=== PATIENT | male | born 1950 | race Caucasian/White ===

== ENCOUNTER → 2016-10-12 | Outpatient (CLI) | payer OTHER ==
[~2016-10-12] MED LIST: ASPI81TA28 PO; ATV1 PO; CRS10 PO; DOCU-94 PO; EZET10TA63 PO; FENO1TAB24 PO; FRS/40 PO; GLC500 PO; GLCSR25 PO; INSDGI SC; INSU100I2 SQ; INSUINJ4 SQ; LPR25 PO; LSX20 PO; LSX40 PO; METF-384 PO; MULT-513 PO; ONDA4TAB46 PO; OXYC1TAB3 PO; POTA20TA13 PO; SPRIN/30 INH; SYMIN160 INH; VNTHFA/IN INH
--- NOTE | 2016-10-12 10:04 | DIAGNOSTIC IMAGING REPORT ---
CHEST 2 VIEWS ROUTINE CLINICAL HISTORY: Pleural effusions. COMPARISON STUDY: 09/27/2016 FINDINGS: The heart is mildly enlarged. There are small bilateral pleural effusions. There is a right basilar chest tube. There is no lobar consolidation. There is mild persistent pulmonary vascular congestion. There is a small radiopaque device projects over the left central chest.[ IMPRESSION: 1. No change the position of the right-sided pleural drain 2. No evidence of pneumothorax 3. Small bilateral pleural effusions similar to the prior study 4. Mild pulmonary vascular congestion Electronically signed by: Jason Trotter M.D. 10/12/2016 10:02 AM
== END | disposition home or self-care (01) ==
LOC: C.RAD 09:09
PROVIDERS: ATTEND Surgery
DX: J90 Pleural effusion, not elsewhere classified (principal)

== ENCOUNTER 2016-10-22 10:33 | Emergency (ER) | payer OTHER ==
[~2016-10-22] VITALS: Ht 175.3 cm; Wt 94.0 kg
[~2016-10-22 10:33] MED LIST changes: -DOCU-94 PO; -FRS/40 PO; -INSDGI SC; -LSX40 PO; -METF-384 PO; -ONDA4TAB46 PO; -OXYC1TAB3 PO
[2016-10-22 10:41] VITALS: TEMP 37.4; Ht 175.3 cm; Wt 94.0 kg
[2016-10-22] MEDS ORDERED: FUROSEMIDE 40 MG/4 ML VIAL IV STA (11:02)
--- NOTE | 2016-10-22 11:05 | EMERGENCY ROOM VISIT NOTE ---
History Report prepared by Leon: Carlos Robertson Under the Supervision of: Dr. Rupert Pacheco M.D. First contact with patient: 10:50 Chief Complaint: CHEST PAIN Stated Complaint: DRAIN TUBE REFUSES TO DRAIN CHEST PAIN History of Present Illness The patient is a 65 year old male who presents to the Emergency Room with complaints of intermittent chest pain since yesterday. The pain is worsened with deep breathing. The pain is rated 4/10 in severity. The patient also complains of a headache. He does not urinate very often despite being on Lasix. The patient was recently diagnosed with a pleural effusion. He has a chest tube in place to drain the fluid, inserted by Dr. Ag, Thoracic Surgeon. The patient was unable to have fluid drained today because he is in so much pain. As per his daughter, the patient typically has 550 CCs of fluid drained. He initially had 2000 CCs drained. The patient had an unspecified pain medication last night. He did not have anything for pain today. He has not been eating much lately. Source of History: patient Onset: yesterday Position: chest Symptom Intensity: 4/10 Timing: intermittent Modifying Factors (Worsening): breathing Associated Symptoms: + headache, + urinary symptoms (infrequent) Review of Systems All systems have been listed, reviewed, and are negative other than those previously mentioned. Please see Additional Medical History Sheet. Past Medical & Surgical Medical Problems: (1) Acute on chronic diastolic CHF (congestive heart failure) (2) Arteriosclerosis (3) Carpal tunnel syndrome (4) CHF exacerbation (5) Diabetes (6) Electrocardiogram showing T wave abnormalities (7) Kidney stone Surgical Problems: (1) History of cholecystectomy (2) History of heart artery stent Family History Cancer SISTER (ovarian) Diabetes mellitus MOTHER SISTER BROTHER FH: hyperlipidemia MOTHER BROTHER FHx: gallbladder disease Heart disease MOTHER ([place] - age 62) Hypertension MOTHER Kidney stones Seizures Social History Smoking Status: Never Smoker Alcohol Use: none Drug Use: none Marital Status: Housing Status: lives with significant other Occupation Status: retired Current/Historical Medications Scheduled Aspirin (Aspirin Ec), 81 MG PO DAILY Budesonide/Formoterol Fumarate (Symbicort 160/4.5 Inhaler), 2 PUFF INH BID Docusate Sodium (Colace), 100 MG PO BID Ezetimibe (Zetia), 10 MG PO DAILY Fenofibrate (Fenofibrate), 145 MG PO DAILY Furosemide (Furosemide), 80 MG PO QAM Furosemide (Lasix), 40 MG PO QPM Glipizide (Glipizide ER), 2.5 MG PO BID Insulin Glargine (Lantus Solostar Pen), 20 UNIT SQ BID Insulin Lispro (Human) (Humalog Kwikpen), 8-12 UNITS SQ ACHS Metformin Hcl (Glucophage), 1,000 MG PO BID Metoprolol Tartrate (Lopressor), 12.5 MG PO BID Multivitamins/Minerals (Mvi With Minerals), 1 TAB PO DAILY Potassium Chloride Microencaps (Potassium Chloride Er), 20 MEQ PO DAILY Rosuvastatin Calcium (Crestor), 5 MG PO DAILY Tiotropium [place] (Spiriva Handihaler), 1 PUFFS INH DAILY Scheduled PRN Albuterol Hfa (Ventolin Hfa), 2 PUFFS INH Q4 PRN for Shortness of Breath Lorazepam (Lorazepam), 1 MG PO HS PRN for Anxiety Ondansetron Hcl (Zofran), 4 MG PO Q4 PRN for Nausea Oxycodone Immediate Rel Tab (Roxicodone Ir), 1-2 TAB PO Q4H PRN for Severe Pain Allergies Coded Allergies: No Known Allergies (Unverified , 10/22/16) Physical Exam Vital Signs Date Time Temp Pulse Resp B/P Pulse Ox O2 Delivery O2 Flow Rate FiO2 10/22/16 14:00 82 26 119/77 96 Room Air 10/22/16 13:17 83 26 124/84 94 Room Air 2.0 10/22/16 13:12 80 10/22/16 12:39 87 26 119/60 94 Nasal Cannula 2.0 10/22/16 12:07 86 21 117/73 94 Nasal Cannula 2.0 10/22/16 11:28 93 Nasal Cannula 2.0 10/22/16 11:21 90 Room Air 10/22/16 11:08 90 Room Air 10/22/16 10:51 84 10/22/16 10:41 37.4 124 22 121/71 95 Room Air Physical Exam GENERAL: Patient awake, alert, oriented x 3. Patient follows commands. Patient does not appear toxic. Patient is adequately hydrated and well- nourished. SKIN: No erythema, pallor, cyanosis or rash HEENT: Normal head, pupils equal, reactive to light and accommodation. CHEST: Tube right side of chest at mid axillary line. LUNGS: No wheezes, no rales, no rhonchi. Decreased breath sounds bilaterally. HEART: No murmurs. No gallops. No rubs ABDOMEN: No masses, no rebound, no hepatomegaly or splenomegaly. EXTREMITIES: No signs of trauma. There is 3+ pitting pretibial and pedal edema bilaterally. No calf or thigh tenderness. NEUROLOGIC: Cranial nerves II-XII within normal limits. No gross motor sensory function deficits. Medical Decision & Procedures ER Provider Diagnostic Interpretation: X ray results are stated below per my interpretation and the radiologist's interpretation. CHEST ONE VIEW PORTABLE CLINICAL HISTORY: Congestive failure RIGHT-SIDED CHEST TUBE WITH NO DRAINAGE. COMPARISON STUDY: 10/12/2016 FINDINGS: The heart is enlarged. There is a right basilar pleural drainage catheter. There is a small bilateral pleural effusion. There are right lower lobe airspace opacities. There is mild central pulmonary vascular congestion.[ IMPRESSION: 1. Cardiomegaly and mild pulmonary vascular congestion 2. Small bilateral pleural effusions 3. Developing right basilar airspace opacities 4. There is an indwelling right-sided pleural drainage catheter. Electronically signed by: Jason Trotter M.D. 10/22/2016 11:33 AM Dictated Date/Time: 10/22/2016 11:31 AM Laboratory Results 10/22/16 11:15 Red Blood Count 5.15, Mean Corpuscular Volume 89.1, Mean Corpuscular Hemoglobin 30.9, Mean Corpuscular Hemoglobin Concent 34.6, Mean Platelet Volume 11.0, Neutrophils (%) (Auto) 90.7, Lymphocytes (%) (Auto) 4.2, Monocytes (%) (Auto) 4.5, Eosinophils (%) (Auto) 0.2, Basophils (%) (Auto) 0.2, Neutrophils # (Auto) 12.43, Lymphocytes # (Auto) 0.58, Monocytes # (Auto) 0.62, Eosinophils # (Auto) 0.03, Basophils # (Auto) 0.03 10/22/16 11:15 Test 10/22/16 11:15 10/22/16 14:50 White Blood Count 13.72 K/uL (4.8-10.8) Red Blood Count 5.15 M/uL (4.7-6.1) Hemoglobin 15.9 g/dL (14.0-18.0) Hematocrit 45.9 % (42-52) Mean Corpuscular Volume 89.1 fL (80-100) Mean Corpuscular Hemoglobin 30.9 pg (25-34) Mean Corpuscular Hemoglobin Concent 34.6 g/dl (32-36) Platelet Count 210 K/uL (130-400) Mean Platelet Volume 11.0 fL (7.4-10.4) Neutrophils (%) (Auto) 90.7 % Lymphocytes (%) (Auto) 4.2 % Monocytes (%) (Auto) 4.5 % Eosinophils (%) (Auto) 0.2 % Basophils (%) (Auto) 0.2 % Neutrophils # (Auto) 12.43 K/uL (1.4-6.5) Lymphocytes # (Auto) 0.58 K/uL (1.2-3.4) Monocytes # (Auto) 0.62 K/uL (0.11-0.59) Eosinophils # (Auto) 0.03 K/uL (0-0.5) Basophils # (Auto) 0.03 K/uL (0-0.2) RDW Standard Deviation 49.4 fL (36.4-46.3) RDW Coefficient of Variation 15.2 % (11.5-14.5) Immature Granulocyte % (Auto) 0.2 % Immature Granulocyte # (Auto) 0.03 K/uL (0.00-0.02) Prothrombin Time 16.1 SECONDS (9.0-12.0) Prothromb Time International Ratio 1.5 (0.9-1.1) Activated Partial Thromboplast Time 31.5 SECONDS (21.0-31.0) Partial Thromboplastin Ratio 1.2 Anion Gap 11.0 mmol/L (3-11) Est Creatinine Clear Calc Drug Dose 59.6 ml/min Estimated GFR () 60.7 Estimated GFR (Non- 52.4 BUN/Creatinine Ratio 12.5 (10-20) Calcium Level 9.1 mg/dl (8.5-10.1) Total Bilirubin 3.7 mg/dl (0.2-1) Aspartate Amino Transf (AST/SGOT) 20 U/L (15-37) Alanine Aminotransferase (ALT/SGPT) 16 U/L (12-78) Alkaline Phosphatase 99 U/L (45-117) Troponin I 0.089 ng/ml (0-0.045) Total Protein 7.1 gm/dl (6.4-8.2) Albumin 3.0 gm/dl (3.4-5.0) Globulin 4.1 gm/dl (2.5-4.0) Albumin/Globulin Ratio 0.7 (0.9-2) Urine Color ORANGE Urine Appearance CLEAR (CLEAR) Urine pH 5.0 (4.5-7.5) Urine Specific [place] 1.015 (1.000-1.030) Urine Protein 1+ (NEG) Urine Glucose (UA) 1+ (NEG) Urine Ketones NEG (NEG) Urine Occult Blood NEG (NEG) Urine Nitrite POS (NEG) Urine Bilirubin 1+ (NEG) Urine Urobilinogen NEG (NEG) Urine Leukocyte Esterase TRACE (NEG) Urine WBC (Auto) 1-5 /hpf (0-5) Urine RBC (Auto) 0-4 /hpf (0-4) Urine Hyaline Casts (Auto) 1-5 /lpf (0-5) Urine Epithelial Cells (Auto) 0-5 /lpf (0-5) Urine Bacteria (Auto) NEG (NEG) Laboratory results as stated above per my review. Medications Administered Medications (Trade) Dose Ordered Sig/Sue Route Start Time Stop Time Status Last Admin Dose Admin Furosemide (Lasix Inj) 40 mg NOW STAT IV 10/22/16 11:02 10/22/16 11:04 DC 10/22/16 11:02 40 MG Morphine Sulfate (MoRPHine SULFATE INJ) 6 mg Q1H PRN IV 10/22/16 11:15 11/05/16 11:14 10/22/16 11:22 6 MG Ondansetron HCl (Zofran Inj) 4 mg Q1HWA PRN IV 10/22/16 11:15 11/21/16 11:14 10/22/16 11:29 4 MG ECG Indication: chest pain Rate (beats per minute): 92 Rhythm: sinus rhythm Findings: 1st degree AV block, ST depression (I, AvL, V4-V6.), left axis deviation ED Course 1054: Past medical records reviewed. The patient was evaluated in room C7. A complete history and physical examination was performed. 1102: Lasix 40 mg IV. 1115: Zofran 4 mg IV, Morphine Sulfate 6 mg IV. 1443: The patient is doing a little better. He still has some pain in his back. He still hasn't given a urine sample. Medical Decision I considered multiple diagnoses including myocardial infarction, chest wall pain , pericarditis, myocarditis, aortic emergencies, pulmonary embolism, congestive heart failure, GI causes, and kidney stone. The patient has multiple comorbid problems including congestive failure, pleural effusions, renal insufficiency. He has a chest strain in his right chest and had one in his left in the past. He is on high-dose Lasix. Patient also complains of significant swelling of both ankles. Multiple labs, EKG and imaging were obtained today. Please see above. The patient's troponin is higher than it has been in the past but I believe that much of that is secondary to his renal insufficiency. His white count is also bumped. The patient's chest x-ray is similar to what it has been in the past. I do not think he has pneumonia or an acute coronary cause for his pain. He was given pain medication and additional Lasix. He does not have significant blood or white cells in his urine. The patient has a follow-up appointment with his chest surgeon soon. The patient will be given pain medication and Zofran to be taken at home. He is to continue all his current medications as prescribed. The patient needs to continue having his chest drained daily. Impression Primary Impression: Bilateral pleural effusion Additional Impression: CHF (congestive heart failure) Scribe Attestation The scribe's documentation has been prepared under my direction and personally reviewed by me in its entirety. I confirm that the note above accurately reflects all work, treatment, procedures, and medical decision making performed by me. Departure Information Dispostion Home / Self-Care Prescriptions Docusate Sodium (COLACE) 100 Mg Cap 100 MG PO BID, #30 CAP Prov: Rupert Pacheco M.D. 10/22/16 Ondansetron Hcl (ZOFRAN) 4 Mg Tab 4 MG PO Q4 Y for Nausea, #10 TAB Prov: Rupert Pacheco M.D. 10/22/16 Oxycodone Immediate Rel Tab (ROXICODONE IR) 5 Mg Tab 1-2 TAB PO Q4H Y for Severe Pain, #20 TAB Prov: Rupert Pacheco M.D. 10/22/16 Referrals Mamadou Weathers (PCP) Kenton Ag MD Forms HOME CARE DOCUMENTATION FORM, IMPORTANT VISIT INFORMATION Patient Instructions My [facility] [employer] Additional Instructions 1-2 OxyIR every 4 hours as needed for moderate to severe pain. Do not drive or operate machinery while taking pain medication. Take 1 Colace twice a day. 1 Zofran every 4 hours as needed for nausea. Continue all of your current medications as prescribed. Follow-up with Dr. Ag as scheduled. Continue to drain chest every day. Problem Qualifiers Additional Impression: CHF (congestive heart failure) Congestive heart failure chronicity: chronic
[2016-10-22] MEDS ORDERED: ONDANSETRON INJ 2 MG/ML 2 ML VIAL IV PRN (11:15)
[2016-10-22] MEDS ORDERED: MoRPHine SULFATE 10 MG/ML CARP/VIAL IV PRN (11:15)
[2016-10-22 11:28] VITALS: O2SAT 93
[2016-10-22 11:31] LABS: BASO % 0.2 %; BASO ABS # 0.03 K/uL (0-0.2); COMPLETE YES; EOS % 0.2 %; HEMATOCRIT 45.9 % (42-52); IG% 0.2 %; LYMPH % 4.2 %; LYMPH ABS # 0.58 K/uL (1.2-3.4); MEAN CELL VOLUME 89.1 fL (80-100); MEAN CORPUSCULAR HEMOGLOBIN 30.9 pg (25-34); MEAN CORPUSCULAR HGB CONC 34.6 g/dl (32-36); MONO % 4.5 %; NEUT % 90.7 %; PLATELET COUNT 210 K/uL (130-400); RED BLOOD COUNT 5.15 M/uL (4.7-6.1); WHITE BLOOD COUNT 13.72 K/uL (4.8-10.8)
--- NOTE | 2016-10-22 11:35 | DIAGNOSTIC IMAGING REPORT ---
CHEST ONE VIEW PORTABLE CLINICAL HISTORY: Congestive failure RIGHT-SIDED CHEST TUBE WITH NO DRAINAGE. COMPARISON STUDY: 10/12/2016 FINDINGS: The heart is enlarged. There is a right basilar pleural drainage catheter. There is a small bilateral pleural effusion. There are right lower lobe airspace opacities. There is mild central pulmonary vascular congestion.[ IMPRESSION: 1. Cardiomegaly and mild pulmonary vascular congestion 2. Small bilateral pleural effusions 3. Developing right basilar airspace opacities 4. There is an indwelling right-sided pleural drainage catheter. Electronically signed by: Jason Trotter M.D. 10/22/2016 11:33 AM Dictated Date/Time: 10/22/2016 11:31 AM
[2016-10-22 11:52] LABS: BUN/CREATININE RATIO 12.5 (10-20); CALCIUM 9.1 mg/dl (8.5-10.1); CREATININE 1.4 mg/dl (0.60-1.40); POTASSIUM 3.7 mmol/L (3.5-5.1)
[2016-10-22 12:01] LABS: INR 1.5 (0.9-1.1); PARTIAL THROMBOPLASTIN RATIO 1.2; PROTHROMBIN TIME (PATIENT) 16.1 SECONDS (9.0-12.0)
[2016-10-22] MEDS ORDERED: FRS/40 PO (12:02)
[2016-10-22] MEDS ORDERED: LSX40 PO (12:02)
[2016-10-22] MEDS ORDERED: METF-384 PO (12:02)
[2016-10-22 12:09] LABS: ALB/GLOB RATIO 0.7 (0.9-2)
[2016-10-22 15:27] LABS: URINE APPEARANCE CLEAR (CLEAR); URINE COLOR ORANGE; URINE EPITHELIAL CELL AUTO 0-5 /lpf (0-5); URINE NITRITE POS (NEG); URINE SPECIFIC GRAVITY 1.015 (1.000-1.030); UROBILINOGEN NEG (NEG); ZZUR CULT IF INDIC CLEAN CATCH NO
[2016-10-22 15:29] LABS: MANUAL MICROSCOPIC REQUIRED? NO; REVIEW REQ? NO; URINE BILIRUBIN 1+ (NEG)
[2016-10-22] MEDS ORDERED: OXYC1TAB3 PO (15:44)
[2016-10-22] MEDS ORDERED: ONDA4TAB46 PO (15:44)
[2016-10-22] MEDS ORDERED: DOCU-94 PO (15:44)
[2016-10-22 16:18] VITALS: BP 121/74; PULSE 78; O2SAT 95
== END 2016-10-22 16:20 | disposition home or self-care (01) ==
LOC: C.EDB 10:34 → C.EDC 16:20
DX: J90 Pleural effusion, not elsewhere classified (principal); I50.32 Chronic diastolic (congestive) heart failure; I51.7 Cardiomegaly; I44.0 Atrioventricular block, first degree; N28.9 Disorder of kidney and ureter, unspecified; E11.9 Type 2 diabetes mellitus without complications; Z79.84 Long term (current) use of oral hypoglycemic drugs; Z79.4 Long term (current) use of insulin; Z83.3 Family history of diabetes mellitus; Z82.49 Family history of ischemic heart disease and other diseases of the circulatory system

== ENCOUNTER 2016-10-25 12:20 | Emergency (ER) | payer OTHER ==
[~2016-10-25] VITALS: Ht 172.7 cm; Wt 99.7 kg
[~2016-10-25 12:20] MED LIST changes: +DOCU-94 PO; +FRS/40 PO; -GLC500 PO; -LSX20 PO; +LSX40 PO; +METF-384 PO; +ONDA4TAB46 PO; +OXYC1TAB3 PO
[2016-10-25 12:23] VITALS: O2SAT 94; Ht 172.7 cm; Wt 99.7 kg
[2016-10-25] MEDS ORDERED: INSDGI SC (12:47)
[2016-10-25] MEDS ORDERED: SODIUM CHLORIDE 0.9% 1000ML 1,000 ML IV STA (13:35)
[2016-10-25 13:41] LABS: BASO % 0.3 %; BASO ABS # 0.03 K/uL (0-0.2); COMPLETE YES; EOS % 0.6 %; HEMATOCRIT 44.7 % (42-52); IG% 0.4 %; LYMPH % 6.8 %; LYMPH ABS # 0.67 K/uL (1.2-3.4); MEAN CELL VOLUME 87.6 fL (80-100); MEAN CORPUSCULAR HEMOGLOBIN 31.6 pg (25-34); MONO % 10.3 %; NEUT % 81.6 %; PLATELET COUNT 257 K/uL (130-400); WHITE BLOOD COUNT 9.84 K/uL (4.8-10.8)
[2016-10-25 13:52] LABS: INR 1.8 (0.9-1.1); PARTIAL THROMBOPLASTIN RATIO 1.4; PROTHROMBIN TIME (PATIENT) 20.1 SECONDS (9.0-12.0)
[2016-10-25 13:59] LABS: BUN/CREATININE RATIO 19.2 (10-20); CREATININE 1.6 mg/dl (0.60-1.40); MAGNESIUM 1.7 mg/dl (1.8-2.4); POTASSIUM 4.1 mmol/L (3.5-5.1)
--- NOTE | 2016-10-25 14:02 | DIAGNOSTIC IMAGING REPORT ---
CHEST ONE VIEW PORTABLE CLINICAL HISTORY: Altered mental status COMPARISON STUDY: 10/22/2016 FINDINGS: The heart remains enlarged. A right-sided pleural drainage catheter is again visualized. There is a persistent right pleural effusion with associated right basilar airspace opacities. There is mild central pulmonary vascular congestion. A small left pleural effusion is also suspected. There are left basilar atelectatic changes. An electronic device projects over the central chest possibly representing an event recorder.[ IMPRESSION: Persistent cardiomegaly, pulmonary vascular congestion, and bilateral pleural effusions right greater than left. Persistent bibasal airspace opacities right greater than left. Persistent right pleural drain. Electronically signed by: Jason Trotter M.D. 10/25/2016 2:01 PM Dictated Date/Time: 10/25/2016 1:59 PM
[2016-10-25 14:07] LABS: CKMB/CK RATIO 1.8 (0-3.0); THYROID STIMULATING HORMONE 1.34 uIu/ml (0.300-4.500)
[2016-10-25 14:55] LABS: URINE APPEARANCE CLEAR (CLEAR); URINE BILIRUBIN NEG (NEG); URINE COLOR DK YELLOW; URINE NITRITE NEG (NEG); URINE SPECIFIC GRAVITY 1.005 (1.000-1.030); UROBILINOGEN POS (NEG); ZZUR CULT IF INDIC CLEAN CATCH NO
[2016-10-25 15:19] LABS: MANUAL MICROSCOPIC REQUIRED? YES; REVIEW REQ? NO
[2016-10-25 15:28] LABS: URINE BACTERIA NEG (NEG); URINE RBC 0-4 /hpf (0-4); URINE WBC 0 /hpf (0-5)
--- NOTE | 2016-10-25 16:27 | EMERGENCY ROOM VISIT NOTE ---
History Report prepared by Leon: Jacquie Darden Under the Supervision of: Dr. Lefty Thornton D.O. First contact with patient: 13:27 Chief Complaint: CHEST PAIN Stated Complaint: SHORTNESS OF BREATH Nursing Triage Summary: pt. has had a 5 pound weight gain in the past day, has right sided chest tube in place since , homehealth was at his home this am to drain and no fluid would drain, pt. states he has right sided chest pain History of Present Illness The patient is a 65 year old male who presents to the Emergency Room with complaints of persistent shortness of breath that has been ongoing for several days. He currently rates his discomfort as a 4/10 in severity. Per the patient 's , the patient was diagnosed with a right pleural effusion. She notes that the patient had a catheter placed and home health nurses come every day to drain the fluid from his lungs. The patient's states that home health nurses got a little bit of fluid out yesterday, but could not get any out today. She notes that the patient has had bilateral lower extremity swelling. The patient's notes that the patient was evaluated in the emergency department on Monday night and was diagnosed with congestive heart failure and noted that his organs were shutting down. She states that the patient has bilateral kidney stones and states that the patient has been experiencing hematuria. The patient states that his main concern today was shortness of breath and the central chest pain that radiates to his back. The patient's states that the patient has had previous pleural effusions that were drained by Dr. Ag in the past. The patient denies any fevers. Source of History: patient, spouse/significant other () Onset: several days Position: other (global) Symptom Intensity: 4/10 Quality: other (shortness of breath) Timing: other (persistent) Associated Symptoms: + back pain, + chest pain (central), + urinary symptoms (hematuria), No fevers Note: Associated Symptoms: bilateral lower extremity swelling. Review of Systems See HPI for pertinent positives & negatives. A total of 10 systems reviewed and were otherwise negative. Past Medical & Surgical Medical Problems: (1) Acute on chronic diastolic CHF (congestive heart failure) (2) Arteriosclerosis (3) Carpal tunnel syndrome (4) CHF exacerbation (5) Diabetes (6) Electrocardiogram showing T wave abnormalities (7) Kidney stone Surgical Problems: (1) History of cholecystectomy (2) History of heart artery stent Family History Cancer SISTER (ovarian) Diabetes mellitus MOTHER SISTER BROTHER FH: hyperlipidemia MOTHER BROTHER FHx: gallbladder disease Heart disease MOTHER (DC - age 62) Hypertension MOTHER Kidney stones Seizures Social History Smoking Status: Never Smoker Alcohol Use: none Drug Use: none Marital Status: Housing Status: lives with significant other Occupation Status: retired Current/Historical Medications Scheduled Aspirin (Aspirin Ec), 81 MG PO DAILY Budesonide/Formoterol Fumarate (Symbicort 160/4.5 Inhaler), 2 PUFF INH BID Docusate Sodium (Colace), 100 MG PO BID Ezetimibe (Zetia), 10 MG PO DAILY Fenofibrate (Fenofibrate), 145 MG PO DAILY Furosemide (Furosemide), 80 MG PO QAM Furosemide (Lasix), 40 MG PO QPM Glipizide (Glipizide ER), 2.5 MG PO BID Insulin Glargine (Lantus), 20 UNITS SC BID Insulin Lispro (Human) (Humalog Kwikpen), 8-12 UNITS SQ ACHS Metformin Hcl (Glucophage), 1,000 MG PO BID Metoprolol Tartrate (Lopressor), 12.5 MG PO BID Multivitamins/Minerals (Mvi With Minerals), 1 TAB PO DAILY Potassium Chloride Microencaps (Potassium Chloride Er), 20 MEQ PO DAILY Rosuvastatin Calcium (Crestor), 5 MG PO DAILY Tiotropium [place] (Spiriva Handihaler), 1 PUFFS INH DAILY Scheduled PRN Albuterol Hfa (Ventolin Hfa), 2 PUFFS INH Q4 PRN for Shortness of Breath Lorazepam (Lorazepam), 1 MG PO HS PRN for Anxiety Ondansetron Hcl (Zofran), 4 MG PO Q4 PRN for Nausea Oxycodone Immediate Rel Tab (Roxicodone Ir), 1-2 TAB PO Q4H PRN for Severe Pain Allergies Coded Allergies: No Known Allergies (Unverified , 10/25/16) Physical Exam Vital Signs Date Time Temp Pulse Resp B/P Pulse Ox O2 Delivery O2 Flow Rate FiO2 10/25/16 20:38 36.8 78 24 106/61 94 Room Air 2.0 10/25/16 19:01 77 24 15/55 94 Room Air 4.0 10/25/16 18:06 75 10/25/16 17:16 76 25 126/70 86 Room Air 10/25/16 15:42 67 20 120/65 99 Nasal Cannula 4.0 10/25/16 14:49 73 19 126/71 97 Nasal Cannula 4.0 10/25/16 13:51 73 10/25/16 13:45 70 22 124/77 95 Nasal Cannula 4.0 10/25/16 12:23 94 4.0 10/25/16 12:23 90 2.0 10/25/16 12:23 36.2 82 22 129/69 90 Nasal Cannula 2.0 Physical Exam CONSTITUTIONAL/VITAL SIGNS: Reviewed / noted above. GENERAL: Non-toxic in appearance. INTEGUMENTARY: Warm, dry, and [place]. HEAD: Normocephalic. EYES: without scleral icterus or trauma. ENT/OROPHARYNX: clear and moist. LYMPHADENOPATHY/NECK: Is supple without lymphadenopathy or meningismus. RESPIRATORY: Diminished breath sounds on the right. CARDIOVASCULAR: Regular rate and rhythm. CHEST WALL: Pleural catheter in right chest wall. GI/ABDOMEN: Soft and nontender. No organomegaly or pulsatile mass. No rebound or guarding. Normal bowel sounds. EXTREMITIES: Bilateral pedal edema. Warm and well perfused. BACK: No CVA tenderness. NEUROLOGICAL: Intact without focal deficits. PSYCHIATRIC: normal affect. MUSCULOSKELETAL: Normally developed with good muscle tone. Medical Decision & Procedures ER Provider Diagnostic Interpretation: X ray results and stated below per my interpretation and radiology interpretation. CHEST ONE VIEW PORTABLE CLINICAL HISTORY: Altered mental status COMPARISON STUDY: 10/22/2016 FINDINGS: The heart remains enlarged. A right-sided pleural drainage catheter is again visualized. There is a persistent right pleural effusion with associated right basilar airspace opacities. There is mild central pulmonary vascular congestion. A small left pleural effusion is also suspected. There are left basilar atelectatic changes. An electronic device projects over the central chest possibly representing an event recorder.[ IMPRESSION: Persistent cardiomegaly, pulmonary vascular congestion, and bilateral pleural effusions right greater than left. Persistent bibasal airspace opacities right greater than left. Persistent right pleural drain. Electronically signed by: Jason Trotter M.D. 10/25/2016 2:01 PM Dictated Date/Time: 10/25/2016 1:59 PM Laboratory Results 10/25/16 11:50 Red Blood Count 5.10, Mean Corpuscular Volume 87.6, Mean Corpuscular Hemoglobin 31.6, Mean Corpuscular Hemoglobin Concent 36.0, Mean Platelet Volume 11.0, Neutrophils (%) (Auto) 81.6, Lymphocytes (%) (Auto) 6.8, Monocytes (%) (Auto) 10.3, Eosinophils (%) (Auto) 0.6, Basophils (%) (Auto) 0.3, Neutrophils # (Auto ) 8.03, Lymphocytes # (Auto) 0.67, Monocytes # (Auto) 1.01, Eosinophils # (Auto ) 0.06, Basophils # (Auto) 0.03 10/25/16 11:50 Test 10/25/16 11:50 10/25/16 13:30 10/25/16 17:17 10/25/16 18:37 White Blood Count 9.84 K/uL (4.8-10.8) Red Blood Count 5.10 M/uL (4.7-6.1) Hemoglobin 16.1 g/dL (14.0-18.0) Hematocrit 44.7 % (42-52) Mean Corpuscular Volume 87.6 fL (80-100) Mean Corpuscular Hemoglobin 31.6 pg (25-34) Mean Corpuscular Hemoglobin Concent 36.0 g/dl (32-36) Platelet Count 257 K/uL (130-400) Mean Platelet Volume 11.0 fL (7.4-10.4) Neutrophils (%) (Auto) 81.6 % Lymphocytes (%) (Auto) 6.8 % Monocytes (%) (Auto) 10.3 % Eosinophils (%) (Auto) 0.6 % Basophils (%) (Auto) 0.3 % Neutrophils # (Auto) 8.03 K/uL (1.4-6.5) Lymphocytes # (Auto) 0.67 K/uL (1.2-3.4) Monocytes # (Auto) 1.01 K/uL (0.11-0.59) Eosinophils # (Auto) 0.06 K/uL (0-0.5) Basophils # (Auto) 0.03 K/uL (0-0.2) RDW Standard Deviation 49.6 fL (36.4-46.3) RDW Coefficient of Variation 15.6 % (11.5-14.5) Immature Granulocyte % (Auto) 0.4 % Immature Granulocyte # (Auto) 0.04 K/uL (0.00-0.02) Prothrombin Time 20.1 SECONDS (9.0-12.0) Prothromb Time International Ratio 1.8 (0.9-1.1) Activated Partial Thromboplast Time 35.6 SECONDS (21.0-31.0) Partial Thromboplastin Ratio 1.4 Anion Gap 14.0 mmol/L (3-11) Est Creatinine Clear Calc Drug Dose 52.7 ml/min Estimated GFR () 51.6 Estimated GFR (Non- 44.5 BUN/Creatinine Ratio 19.2 (10-20) Osmolality 277 mOsm/kg (280-300) Calcium Level 9.0 mg/dl (8.5-10.1) Magnesium Level 1.7 mg/dl (1.8-2.4) Total Bilirubin 6.5 mg/dl (0.2-1) Direct Bilirubin 5.0 mg/dl (0-0.2) Aspartate Amino Transf (AST/SGOT) 527 U/L (15-37) Alanine Aminotransferase (ALT/SGPT) 151 U/L (12-78) Alkaline Phosphatase 131 U/L (45-117) Total Creatine Kinase 85 U/L (39-308) Creatine Kinase MB 1.5 ng/ml (0.5-3.6) Creatine Kinase MB Ratio 1.8 (0-3.0) Troponin I 0.052 ng/ml (0-0.045) Total Protein 6.8 gm/dl (6.4-8.2) Albumin 2.5 gm/dl (3.4-5.0) Lipase 109 U/L (73-393) Thyroid Stimulating Hormone (TSH) 1.340 uIu/ml (0.300-4.500) Urine Color DK YELLOW Urine Appearance CLEAR (CLEAR) Urine pH 5.0 (4.5-7.5) Urine Specific [place] 1.005 (1.000-1.030) Urine Protein NEG (NEG) Urine Glucose (UA) NEG (NEG) Urine Ketones NEG (NEG) Urine Occult Blood NEG (NEG) Urine Nitrite NEG (NEG) Urine Bilirubin NEG (NEG) Urine Urobilinogen POS (NEG) Urine Leukocyte Esterase NEG (NEG) Urine WBC (Auto) /hpf (0-5) Urine RBC (Auto) /hpf (0-4) Urine Hyaline Casts (Auto) /lpf (0-5) Urine Epithelial Cells (Auto) /lpf (0-5) Urine Bacteria (Auto) (NEG) Urine RBC 0-4 /hpf (0-4) Urine WBC 0 /hpf (0-5) Urine Epithelial Cells 5-10 /lpf (0-5) Urine Bacteria NEG (NEG) Urine Hyaline Casts 1-5 /lpf (0-5) Lactic Acid Level 2.6 mmol/L (0.4-2.0) Ammonia < 10.0 umol/L (11-32) Test 10/25/16 18:45 10/25/16 18:54 Arterial Blood pH 7.51 (7.35-7.45) Arterial Blood Partial Pressure CO2 30 mmHg (35-46) Arterial Blood Partial Pressure O2 98 mm/Hg (80-95) Arterial Blood HCO3 24 mmol/L (19-24) Arterial Blood Oxygen Saturation 98.1 % (90-95) Arterial Blood Base Excess 1.6 mEq/L (-9-1.8) Arterial Blood Gas Delivery 2 LITERS Jonas Test POS (POS) Hepatitis B Surface Antigen NEG (NEG) Hepatitis C Antibody NEG (NEG) Laboratory results as stated above per my review. ECG Indication: chest pain, SOB/dyspnea Rate (beats per minute): 73 Rhythm: sinus rhythm Findings: PAC (73), T-wave inversion (Lateral), no acute ischemic change Comparison ECG Date: 10/22/16 Change: no significant change (ST changes are similar) ED Course 1327: Previous medical records were reviewed. The patient was evaluated in room B8. A complete history and physical examination was performed. 1608: I reevaluated the patient and he is resting comfortably. I discussed the exam findings with him and I discussed the treatment plan. He verbalized compete understanding and agreement. He is going to be evaluated for further treatment. 1610: The patient's case was discussed with Dr. Whitney [facility]. He is going to evaluate the patient for further treatment. 1810: It was brought to my attention that Dr. Ag is not in town this week , so therefore the patient needs to be transferred to another facility for further evaluation and treatment. 1830: I discussed the patients case with Dr. Saab, Pulmonology [facility]. They are going to contact an internal medicine doctor to directly evaluate the patient for further treatment at their facility. 185: I discussed the patients case with Dr. Contreras, Internal Medicine - [facility]. He has accepted the patient as a transfer to their facility. Medical Decision the differential was considered includes acute myocardial infarction, acute coronary syndrome, myocarditis, pericarditis, pericardial effusions /tamponad, esophageal perforation, pulmonary embolism, pneumonia, pneumothorax, cardiomyopathy, congestive heart, anemia , COPD/asthma exacerbation. This is a 65-year-old male who presents to the ED with a chief complaint of increasing shortness of breath and increasing edema. The patient states the has his Pleur-evac drained about 500 mL daily. This morning the visiting nurse was unable to drain the catheter and there was increased pain in the chest with attempted draining. The patient came in for evaluation. Exam reveals decreased breath sounds on the right compared to left. Vital signs are stable. EKG shows sinus rhythm rate of 73. White blood cell count was normal. INR is 1.8. Bilirubin is elevated at 6.5. BUN and creatinine are slightly higher than 3 days ago. Troponin is 0.052. This is down slightly from 3 days ago. Chest x-ray reveals bilateral pleural effusions and pulmonary arrest or congestion. The patient was told the results of the test. I spoke with the hospitalist, who will see the patient for further inpatient evaluation. The hospitalist did not feel comfortable keeping the patient here as the patient assessment coordinator is currently not present to evaluate the Pleur-evac. The patient was accepted at [facility] and [place] for evaluation there. The patient was transported there by ambulance. Consults Time Called: 1544 Consulting Physician: JIMMY Escamilla Returned Call: 1610 The patient's case was discussed with JMIMY Escamilla. He is going to evaluate the patient for further treatment. Additional Consults: Time Called: 1816 Consulted Physician: Dr. Saab, Pulmonology Critical [facility] Returned Call: 1830 Additional Comments: I discussed the patients case with Dr. Saab, Pulmonology Critical [facility]. They are going to contact an internal medicine doctor to directly evaluate the patient for further treatment at their facility. Time Called: 1829 Consulted Physician: Dr. Contreras, Internal Medicine - [facility] Returned Call: 1855 Additional Comments: I discussed the patients case with Dr. Contreras, Internal Medicine - [facility]. He has accepted the patient as a transfer to their facility. Impression Primary Impression: CHF (congestive heart failure) Additional Impressions: Renal insufficiency Hyponatremia Elevated troponin Hyperbilirubinemia Scribe Attestation The scribe's documentation has been prepared under my direction and personally reviewed by me in its entirety. I confirm that the note above accurately reflects all work, treatment, procedures, and medical decision making performed by me. Departure Information Dispostion Transfer Acute Care Facility Referrals Mamadou Weathers (PCP) Problem Qualifiers
[2016-10-25] MEDS ORDERED: ALBUMIN 25% 50 ML with FUROSEMIDE INJ 40 MG IV ONE ×2 (17:30)
--- NOTE | 2016-10-25 17:40 | DIAGNOSTIC IMAGING REPORT ---
CHEST CT WITHOUT CONTRAST CT DOSE: 1082.41 mGy.cm HISTORY: pleural effusions, Pleurx catheter TECHNIQUE: Multiaxial CT images of the chest were performed without contrast. COMPARISON: Chest CTA 09/15/2016. FINDINGS: The central airways are patent. No pneumothorax. Suture material at the base of the left lower lobe suggestive of prior wedge resection. Patchy densities at the left lung base may represent atelectasis. This is not significantly changed. There is mild interlobular septal thickening. This favors mild pulmonary edema. Near complete consolidation of the right lower lobe. This is nonspecific but favors compressive atelectasis from the partially loculated [id number] pleural effusion. There is also a small component of the loculated right pleural fluid within the major fissure. There is a right sided pleural catheter which enters the posterior pleural space and extends along the anterior pleural base. Of note, the majority of the pleural fluid remains loculated within the upper to mid hemithorax posteriorly. Therefore, some of this fluid may not have contact with the pleural catheter. Normal caliber thoracic aorta. Prior cholecystectomy. Slightly nodular contour to the liver consistent with cirrhosis. The visualized spleen and adrenal glands are unremarkable. Mediastinal lymphadenopathy persists. Dominant anterior mediastinal lymph node measures 2.0 x 1.2 cm. This is similar to the prior study. Diffuse body wall edema. Hyperdense material within the left pleural space likely represents prior pleurodesis. IMPRESSION: 1. Small to moderate partially loculated right pleural effusion which has slightly increased in size. There is a right sided pleural catheter which enters the posterior pleural space and extends along the anterior pleural base. The majority of the partially loculated pleural fluid is located posteriorly at the upper to mid right hemithorax. Therefore, this may not have contact with the pleural catheter. 2. Persistent mediastinal lymphadenopathy. 3. Mild interlobular septal thickening suggestive of mild pulmonary edema. 4. Body wall edema. 5. Left-sided pleurodesis. Electronically signed by: Justin Lewis M.D. 10/25/2016 5:38 PM Dictated Date/Time: 10/25/2016 5:28 PM
--- NOTE | 2016-10-25 17:44 | History and Physical ---
History & Physical Date & Time of Service: Oct 25, 2016 at 17:02 Chief Complaint: Shortness Of Breath Primary Care Physician: Mamadou Weathers History of Present Illness Source: patient, family, spouse, clinic records, hospital records This patient is a pleasant 65-year-old male that presents emergency department by ambulance complaining of substernal chest pain and shortness of breath that got significantly worse earlier today when the patient's home healthcare nurse tried to drain his right sided Pleurx catheter. The Pleurx catheter was originally placed about 1 month ago. He follows with Dr. Ag for chronic bilateral transudative pleural effusions. The patient underwent left sided thoracoscopy with pleurodesis they think in August 2015. He has subsequently now developed a right-sided pleural effusion. They're trying conservative treatment with the Pleurx catheter, however it is documented in thoracic surgery 's notes that they will entertain the idea of a right-sided thoracoscopy and pleurodesis. After the Pleurx catheter was placed for couple weeks ago, he did have fairly good symptomatic relief. Today is the first day that he had severe chest pain when he attempted to drain it. They were not able to obtain any fluid. The patient has had a nonproductive cough. He denies any fever or chills. He denies any abdominal pain or nausea. No changes in bowel movements , however he does note some constipation having a bowel movement approximately every other day. They're reportedly light brown. He denies any urinary frequency. He does note hematuria 2 days ago. The patient was seen in the emergency department 3 days ago with chest pain or shortness of breath. A workup was performed, the patient was sent home. His symptoms have progressed. Past Medical/Surgical History Medical Problems: Asthma Chronic bilateral transudative pleural effusions status post left-sided thoracoscopy and pleurodesis. Status post right Pleurx catheter approximately 1 month ago Coronary artery disease status post GA in 1988 with stent placement CHF-diastolic dysfunction Insulin-dependent diabetes mellitus Obstructive sleep apnea-recently noncompliant with CPAP Surgical Problems: (1) History of cholecystectomy Status: Resolved ? history of Liver dz-biopsy done during cholecystectomy. thinks that it was consistent with hepatitis (2) History of heart artery stent Status: Chronic Family History Cancer SISTER (ovarian) Diabetes mellitus MOTHER SISTER BROTHER FH: hyperlipidemia MOTHER BROTHER FHx: gallbladder disease Heart disease MOTHER (GA - age 62) Hypertension MOTHER Kidney stones Seizures Social History Smoking Status: Never Smoker Alcohol Use: none Drug Use: none Marital Status: Housing status: lives with family Occupational Status: retired Immunizations History of Influenza Vaccine: Yes History of Tetanus Vaccine?: Yes History of Pneumococcal: Yes History of Hepatitis B Vaccine: No Multi-Drug Resistant Organisms History of MDRO: No Allergies Coded Allergies: No Known Allergies (Unverified , 10/25/16) Home Medications Scheduled Aspirin (Aspirin Ec), 81 MG PO DAILY Budesonide/Formoterol Fumarate (Symbicort 160/4.5 Inhaler), 2 PUFF INH BID Docusate Sodium (Colace), 100 MG PO BID Ezetimibe (Zetia), 10 MG PO DAILY Fenofibrate (Fenofibrate), 145 MG PO DAILY Furosemide (Furosemide), 80 MG PO QAM Furosemide (Lasix), 40 MG PO QPM Glipizide (Glipizide ER), 2.5 MG PO BID Insulin Glargine (Lantus), 20 UNITS SC BID Insulin Lispro (Human) (Humalog Kwikpen), 8-12 UNITS SQ ACHS Metformin Hcl (Glucophage), 1,000 MG PO BID Metoprolol Tartrate (Lopressor), 12.5 MG PO BID Multivitamins/Minerals (Mvi With Minerals), 1 TAB PO DAILY Potassium Chloride Microencaps (Potassium Chloride Er), 20 MEQ PO DAILY Rosuvastatin Calcium (Crestor), 5 MG PO DAILY Tiotropium [place] (Spiriva Handihaler), 1 PUFFS INH DAILY Scheduled PRN Albuterol Hfa (Ventolin Hfa), 2 PUFFS INH Q4 PRN for Shortness of Breath Lorazepam (Lorazepam), 1 MG PO HS PRN for Anxiety Ondansetron Hcl (Zofran), 4 MG PO Q4 PRN for Nausea Oxycodone Immediate Rel Tab (Roxicodone Ir), 1-2 TAB PO Q4H PRN for Severe Pain Review of Systems 10 system review performed and negative unless noted in HPI or below Physical Exam Vital Signs Date Time Temp Pulse Resp B/P Pulse Ox O2 Delivery O2 Flow Rate FiO2 10/25/16 15:42 67 20 120/65 99 Nasal Cannula 4.0 10/25/16 14:49 73 19 126/71 97 Nasal Cannula 4.0 10/25/16 13:51 73 10/25/16 13:45 70 22 124/77 95 Nasal Cannula 4.0 10/25/16 12:23 94 4.0 10/25/16 12:23 90 2.0 10/25/16 12:23 36.2 82 22 129/69 90 Nasal Cannula 2.0 GENERAL: 65-year-old male, jaundice and chronically ill in appearance. Mildly disoriented SKIN: The skin was juandice-no petechia noted HEAD: Normocephalic atraumatic. EYES: Pupils equal round and reactive to light and accommodation. Sclera icteric MOUTH: Mucous membranes fairly dry. No bleeding noted with the gums. NECK: No lymphadenopathy. No JVD. THORAX: No erythema noted around current right lateral proximal catheter site. There are [address] with mild underlying edema noted with point tenderness posterior to the current site HEART: Systolic murmur noted. Regular rate. LUNGS: Significantly diminished breath sounds particularly at the right base. No wheezing noted. Saturating at 99% on 4 L of oxygen per nasal cannula. ABDOMEN: Positive bowel sounds x 4.Soft, tenderness to palpation noted in the right upper quadrant with ascites also noted. No guarding or rebound tenderness. MUSCULOSKELETAL: +1 pitting edema without any erythema, warmth or tenderness appreciated in lower extremities bilaterally. NEURO: Patient was alert and oriented to person place and time. He is somewhat slightly slow to respond to questions. Mildly disoriented. No focal weakness noted. Diagnostics Laboratory Results Results Past 24 Hours Test 10/25/16 11:50 10/25/16 13:30 Range/Units White Blood Count 9.84 4.8-10.8 K/uL Red Blood Count 5.10 4.7-6.1 M/uL Hemoglobin 16.1 14.0-18.0 g/dL Hematocrit 44.7 42-52 % Mean Corpuscular Volume 87.6 80-100 fL Mean Corpuscular Hemoglobin 31.6 25-34 pg Mean Corpuscular Hemoglobin Concent 36.0 32-36 g/dl Platelet Count 257 130-400 K/uL Mean Platelet Volume 11.0 7.4-10.4 fL Neutrophils (%) (Auto) 81.6 % Lymphocytes (%) (Auto) 6.8 % Monocytes (%) (Auto) 10.3 % Eosinophils (%) (Auto) 0.6 % Basophils (%) (Auto) 0.3 % Neutrophils # (Auto) 8.03 1.4-6.5 K/uL Lymphocytes # (Auto) 0.67 1.2-3.4 K/uL Monocytes # (Auto) 1.01 0.11-0.59 K/uL Eosinophils # (Auto) 0.06 0-0.5 K/uL Basophils # (Auto) 0.03 0-0.2 K/uL RDW Standard Deviation 49.6 36.4-46.3 fL RDW Coefficient of Variation 15.6 11.5-14.5 % Immature Granulocyte % (Auto) 0.4 % Immature Granulocyte # (Auto) 0.04 0.00-0.02 K/uL Prothrombin Time 20.1 9.0-12.0 SECONDS Prothromb Time International Ratio 1.8 0.9-1.1 Activated Partial Thromboplast Time 35.6 21.0-31.0 SECONDS Partial Thromboplastin Ratio 1.4 Sodium Level 127 136-145 mmol/L Potassium Level 4.1 3.5-5.1 mmol/L Chloride Level 90 98-107 mmol/L Carbon Dioxide Level 23 21-32 mmol/L Anion Gap 14.0 3-11 mmol/L Blood Urea Nitrogen 31 7-18 mg/dl Creatinine 1.60 0.60-1.40 mg/dl Est Creatinine Clear Calc Drug Dose 52.7 ml/min Estimated GFR () 51.6 Estimated GFR (Non- 44.5 BUN/Creatinine Ratio 19.2 10-20 Random Glucose 168 70-99 mg/dl Calcium Level 9.0 8.5-10.1 mg/dl Magnesium Level 1.7 1.8-2.4 mg/dl Total Bilirubin 6.5 0.2-1 mg/dl Direct Bilirubin 5.0 0-0.2 mg/dl Aspartate Amino Transf (AST/SGOT) 527 15-37 U/L Alanine Aminotransferase (ALT/SGPT) 151 12-78 U/L Alkaline Phosphatase 131 45-117 U/L Total Creatine Kinase 85 39-308 U/L Creatine Kinase MB 1.5 0.5-3.6 ng/ml Creatine Kinase MB Ratio 1.8 0-3.0 Troponin I 0.052 0-0.045 ng/ml Total Protein 6.8 6.4-8.2 gm/dl Albumin 2.5 3.4-5.0 gm/dl Lipase 109 73-393 U/L Thyroid Stimulating Hormone (TSH) 1.340 0.300-4.500 uIu/ml Urine Color DK YELLOW Urine Appearance CLEAR CLEAR Urine pH 5.0 4.5-7.5 Urine Specific [place] 1.005 1.000-1.030 Urine Protein NEG NEG Urine Glucose (UA) NEG NEG Urine Ketones NEG NEG Urine Occult Blood NEG NEG Urine Nitrite NEG NEG Urine Bilirubin NEG NEG Urine Urobilinogen POS NEG Urine Leukocyte Esterase NEG NEG Urine WBC (Auto) 0-5 /hpf Urine RBC (Auto) 0-4 /hpf Urine Hyaline Casts (Auto) 0-5 /lpf Urine Epithelial Cells (Auto) 0-5 /lpf Urine Bacteria (Auto) NEG Urine RBC 0-4 0-4 /hpf Urine WBC 0 0-5 /hpf Urine Epithelial Cells 5-10 0-5 /lpf Urine Bacteria NEG NEG Urine Hyaline Casts 1-5 0-5 /lpf Microbiology Results 10/25/16 Blood Culture, Received Pending 10/25/16 Blood Culture, Received Pending 10/25/16 Urine Culture, Received Pending Diagnostic Radiology CHEST ONE VIEW PORTABLE CLINICAL HISTORY: Altered mental status COMPARISON STUDY: 10/22/2016 FINDINGS: The heart remains enlarged. A right-sided pleural drainage catheter is again visualized. There is a persistent right pleural effusion with associated right basilar airspace opacities. There is mild central pulmonary vascular congestion. A small left pleural effusion is also suspected. There are left basilar atelectatic changes. An electronic device projects over the central chest possibly representing an event recorder.[ IMPRESSION: Persistent cardiomegaly, pulmonary vascular congestion, and bilateral pleural effusions right greater than left. Persistent bibasal airspace opacities right greater than left. Persistent right pleural drain. Electronically signed by: Jason Trotter M.D. 10/25/2016 2:01 PM Dictated Date/Time: 10/25/2016 1:59 PM EKG Sinus rhythm with first-degree AV block and PACs noted Q waves noted in the inferior leads ST depressions noted in the lateral leads Impression Assessment and Plan 65-year-old male with multiple medical problems presents emergency department with worsening shortness of breath, dyspnea on exertion and the sudden onset of acute chest pain today with attempts to drain his right-sided Pleurx catheter. Acute on chronic respiratory failure with hypoxia-likely multifactorial. Likely an element of acute on chronic diastolic heart failure. Worsening transudative pleural effusions. Normally on 2 L O2 per NC at home -Obtain CT chest/abd/pelvis -Give dose of Albumin 25%/lasix 40 mg IV x 1 -Patient's thoracic surgeon, Dr. Ag is out of town. Dr. Alatorre pulmonary will be consulted for the Pleurx catheter -Check ABG -Strict I's and O's Metabolic encephalopathy-possibly related to pain meds. However, I am concerned about his worsening liver function coupled with hypoxia -Check lactic acid -Check ammonia level -ABG as noted above Coagulopathy likely secondary to hepatitis-INR increased from 1.5-1.8. Transaminases up. Questionable History of hepatitis -Vit K 10 mg IV now -Check hepatitis panel Hyponatremia-? Dehydration, poor po intake versus SIADH -Add urine and serum osmolality -Strict I's and O's diabetes mellitus -follow BSGs AC, HS and with meals -hold patient's home dose of metformin 1000 mg BID -insulin sliding scale -Continue home dose of Lantus 20 u BID (if ok for diet) History of asthma -Continue Spiriva daily -Continue Symbicort BID -Duo nebs every 6 hours will be available History of coronary artery disease with substernal chest pain. Mild elevation in trop trending down from 3 days ago-I do not believe this is cardiac in nature. This is likely more related to pleuritic pain -Trend cardiac enzymes -Telemetry monitoring -Continue metoprolol 12.5 mg BID AYLA -Encourage CPAP at night DVT prophylaxis -Hold off on chemical means as patient is coagulopathic -Teds, SCDs CODE STATUS -LEVEL I FULL CODE DISPO -pt is seriously ill, pending further work up, pt may need transfer to [facility] to pts other tree climber, Dr. Gianna Neal as the pt's local thoracic surgeon is out of town. Dr. Alatorre also out of town ADDENDUM Given that the pt has worsening coagulopathy and his thoracic surgeon is out of town, recommend TRANSFER TO [facility] UNDER THE CARE OF PT'S OTHER ARCHITECTURE MANAGER, DR. GIANNA NEAL. Level of Care Critical Care Resuscitation Status FULL RESUSCITATION VTE Prophylaxis Risk Level: Very Low Given or contraindicated: Christian Armentaings, SCD's, Contraindicated
--- NOTE | 2016-10-25 17:44 | DIAGNOSTIC IMAGING REPORT ---
CT SCAN OF THE ABDOMEN AND PELVIS WITHOUT IV CONTRAST CLINICAL HISTORY: Abnormal liver and renal function. COMPARISON STUDY: Abdominal CT dated 03/31/2016. TECHNIQUE: CT scan of the abdomen and pelvis is performed from the lung bases to the proximal femora. Images are reviewed in the axial, sagittal, and coronal planes. IV contrast was not administered for this examination as per the referring clinician. Note that the examination was performed and significant suboptimal fashion without oral and IV contrast. The examination is also degraded by streak artifact from the right arm which could not be elevated above the abdomen. Automated dose control exposure was utilized. FINDINGS: Lung bases: The heart is top normal in size and without pericardial effusion. The coronary arteries are densely calcified. There is a small to moderate right pleural effusion with right basilar consolidation. There is a trace left pleural effusion with left basilar consolidation. A pleural drain is noted at the right lung base. Suture material is noted at the left lung base, and hyperdense material at the left lung base suggests previous pleurodesis. Liver: The unenhanced liver is cirrhotic in morphology and heterogeneous in attenuation. There is nodularity of the hepatic surface contour. There is mild central intrahepatic biliary ductal dilatation. Gallbladder: Surgically absent noting clips in the gallbladder fossa. Spleen: The spleen is mildly enlarged, measuring 14.5 cm in length. Pancreas: There is moderate fatty atrophy of the pancreas. Adrenal glands: Unremarkable. Kidneys: The unenhanced kidneys demonstrate mild cortical atrophy and are without hydronephrosis. A 5 mm nonobstructing calculus is present in the right lower pole. There are 2 nonobstructing calculi in the left lower pole measuring up to 3 mm. A 1.5 cm hyperdense lesion in the left upper pole is unchanged and likely represents a complex/hemorrhagic cyst. Abdominal vasculature: The abdominal aorta is normal in course and caliber noting moderate to advanced atherosclerotic calcification. Bowel: The small bowel and colon are normal in course and caliber. There is mild to moderate colonic fecal retention. There are scattered colonic diverticula without CT evidence of acute diverticulitis. The appendix is well-visualized and normal. Peritoneum: There is no intraperitoneal free air or abdominal ascites. There is mild mesenteric edema. There is a small fat-containing umbilical hernia. Lymphadenopathy: None. Pelvic viscera: The bladder, prostate, and seminal vesicles are normal as visualized. Skeletal structures: The skeletal structures are osteopenic. There is mild lumbosacral spondylosis. No lytic or blastic lesions are seen. Soft tissues: There is body wall edema. IMPRESSION: 1. Significantly suboptimal examination without oral and IV contrast. The examination is also degraded by streak artifact. 2. There are no acute infectious or inflammatory findings in the abdomen or pelvis. 3. Small to moderate right pleural effusion with right basilar consolidation and a right pleural drain in place. 4. There is a trace left pleural effusion with minimal consolidative change and evidence of previous pleurodesis at the left lung base. 5. Cirrhotic liver morphology. 6. There is mesenteric edema and anasarca of the body wall suggesting fluid overload. 7. Mild splenomegaly suggests portal hypertension. 8. Bilateral nonobstructing renal calculi. 9. Additional findings as above. Electronically signed by: Frederick Calderon M.D. 10/25/2016 5:42 PM Dictated Date/Time: 10/25/2016 5:31 PM
--- NOTE | 2016-10-25 18:19 | Medical Consult ---
Consultation Note Consultation Note [facility] [address] [place] [address] Medical Consultation Patient Name: Miguel Sneed Unit Number: [id number] Date of : 1950 Patient Status: Registered Emergency Room Attending Doctor: Lefty Thornton D.O. History - H&P CONSULT Date & Time of Service: Oct 25, 2016 at 17:02 Chief Complaint: Shortness Of Breath Primary Care Physician: Mamadou Weathers History of Present Illness Source: patient, family, spouse, clinic records, hospital records This patient is a pleasant 65-year-old male that presents emergency department by ambulance complaining of substernal chest pain and shortness of breath that got significantly worse earlier today when the patient's home healthcare nurse tried to drain his right sided Pleurx catheter. The Pleurx catheter was originally placed about 1 month ago. He follows with Dr. Ag for chronic bilateral transudative pleural effusions. The patient underwent left sided thoracoscopy with pleurodesis they think in August 2015. He has subsequently now developed a right-sided pleural effusion. They're trying conservative treatment with the Pleurx catheter, however it is documented in thoracic surgery 's notes that they will entertain the idea of a right-sided thoracoscopy and pleurodesis. After the Pleurx catheter was placed for couple weeks ago, he did have fairly good symptomatic relief. Today is the first day that he had severe chest pain when he attempted to drain it. They were not able to obtain any fluid. The patient has had a nonproductive cough. He denies any fever or chills. He denies any abdominal pain or nausea. No changes in bowel movements , however he does note some constipation having a bowel movement approximately every other day. They're reportedly light brown. He denies any urinary frequency. He does note hematuria 2 days ago. The patient was seen in the emergency department 3 days ago with chest pain or shortness of breath. A workup was performed, the patient was sent home. His symptoms have progressed. Past Medical/Surgical History Medical Problems: Asthma Chronic bilateral transudative pleural effusions status post left-sided thoracoscopy and pleurodesis. Status post right Pleurx catheter approximately 1 month ago Coronary artery disease status post [place] in 1988 with stent placement CHF-diastolic dysfunction Insulin-dependent diabetes mellitus Obstructive sleep apnea-recently noncompliant with CPAP Surgical Problems: (1) History of cholecystectomy Status: Resolved ? history of Liver dz-biopsy done during cholecystectomy. thinks that it was consistent with hepatitis (2) History of heart artery stent Status: Chronic Family History Cancer SISTER (ovarian) Diabetes mellitus MOTHER SISTER BROTHER FH: hyperlipidemia MOTHER BROTHER FHx: gallbladder disease Heart disease MOTHER ([place] - age 62) Hypertension MOTHER Kidney stones Seizures Social History Smoking Status: Never Smoker Alcohol Use: none Drug Use: none Marital Status: Housing status: lives with family Occupational Status: retired Immunizations History of Influenza Vaccine: Yes History of Tetanus Vaccine?: Yes History of Pneumococcal: Yes History of Hepatitis B Vaccine: No Multi-Drug Resistant Organisms History of MDRO: No Allergies Coded Allergies: No Known Allergies (Unverified , 10/25/16) Home Medications Scheduled Aspirin (Aspirin Ec), 81 MG PO DAILY Budesonide/Formoterol Fumarate (Symbicort 160/4.5 Inhaler), 2 PUFF INH BID Docusate Sodium (Colace), 100 MG PO BID Ezetimibe (Zetia), 10 MG PO DAILY Fenofibrate (Fenofibrate), 145 MG PO DAILY Furosemide (Furosemide), 80 MG PO QAM Furosemide (Lasix), 40 MG PO QPM Glipizide (Glipizide ER), 2.5 MG PO BID Insulin Glargine (Lantus), 20 UNITS SC BID Insulin Lispro (Human) (Humalog Kwikpen), 8-12 UNITS SQ ACHS Metformin Hcl (Glucophage), 1,000 MG PO BID Metoprolol Tartrate (Lopressor), 12.5 MG PO BID Multivitamins/Minerals (Mvi With Minerals), 1 TAB PO DAILY Potassium Chloride Microencaps (Potassium Chloride Er), 20 MEQ PO DAILY Rosuvastatin Calcium (Crestor), 5 MG PO DAILY Tiotropium [place] (Spiriva Handihaler), 1 PUFFS INH DAILY Scheduled PRN Albuterol Hfa (Ventolin Hfa), 2 PUFFS INH Q4 PRN for Shortness of Breath Lorazepam (Lorazepam), 1 MG PO HS PRN for Anxiety Ondansetron Hcl (Zofran), 4 MG PO Q4 PRN for Nausea Oxycodone Immediate Rel Tab (Roxicodone Ir), 1-2 TAB PO Q4H PRN for Severe Pain Review of Systems 10 system review performed and negative unless noted in HPI or below Physical Ex - H&P Physical Exam Vital Signs Date Time Temp Pulse Resp B/P Pulse Ox O2 Delivery O2 Flow Rate FiO2 10/25/16 15:42 67 20 120/65 99 Nasal Cannula 4.0 10/25/16 14:49 73 19 126/71 97 Nasal Cannula 4.0 10/25/16 13:51 73 10/25/16 13:45 70 22 124/77 95 Nasal Cannula 4.0 10/25/16 12:23 94 4.0 10/25/16 12:23 90 2.0 10/25/16 12:23 36.2 82 22 129/69 90 Nasal Cannula 2.0 GENERAL: 65-year-old male, jaundice and chronically ill in appearance. Mildly disoriented SKIN: The skin was juandice-no petechia noted HEAD: Normocephalic atraumatic. EYES: Pupils equal round and reactive to light and accommodation. Sclera icteric MOUTH: Mucous membranes fairly dry. No bleeding noted with the gums. NECK: No lymphadenopathy. No JVD. THORAX: No erythema noted around current right lateral proximal catheter site. There are [address] with mild underlying edema noted with point tenderness posterior to the current site HEART: Systolic murmur noted. Regular rate. LUNGS: Significantly diminished breath sounds particularly at the right base. No wheezing noted. Saturating at 99% on 4 L of oxygen per nasal cannula. ABDOMEN: Positive bowel sounds x 4.Soft, tenderness to palpation noted in the right upper quadrant with ascites also noted. No guarding or rebound tenderness. MUSCULOSKELETAL: +1 pitting edema without any erythema, warmth or tenderness appreciated in lower extremities bilaterally. NEURO: Patient was alert and oriented to person place and time. He is somewhat slightly slow to respond to questions. Mildly disoriented. No focal weakness noted. Diagnostics - H&P Diagnostics CHEST CT WITHOUT CONTRAST CT DOSE: 1082.41 mGy.cm HISTORY: pleural effusions, Pleurx catheter TECHNIQUE: Multiaxial CT images of the chest were performed without contrast. COMPARISON: Chest CTA 09/15/2016. FINDINGS: The central airways are patent. No pneumothorax. Suture material at the base of the left lower lobe suggestive of prior wedge resection. Patchy densities at the left lung base may represent atelectasis. This is not significantly changed. There is mild interlobular septal thickening. This favors mild pulmonary edema. Near complete consolidation of the right lower lobe. This is nonspecific but favors compressive atelectasis from the partially loculated [id number] pleural effusion. There is also a small component of the loculated right pleural fluid within the major fissure. There is a right sided pleural catheter which enters the posterior pleural space and extends along the anterior pleural base. Of note, the majority of the pleural fluid remains loculated within the upper to mid hemithorax posteriorly. Therefore, some of this fluid may not have contact with the pleural catheter. Normal caliber thoracic aorta. Prior cholecystectomy. Slightly nodular contour to the liver consistent with cirrhosis. The visualized spleen and adrenal glands are unremarkable. Mediastinal lymphadenopathy persists. Dominant anterior mediastinal lymph node measures 2.0 x 1.2 cm. This is similar to the prior study. Diffuse body wall edema. Hyperdense material within the left pleural space likely represents prior pleurodesis. IMPRESSION: 1. Small to moderate partially loculated right pleural effusion which has slightly increased in size. There is a right sided pleural catheter which enters the posterior pleural space and extends along the anterior pleural base. The majority of the partially loculated pleural fluid is located posteriorly at the upper to mid right hemithorax. Therefore, this may not have contact with the pleural catheter. 2. Persistent mediastinal lymphadenopathy. 3. Mild interlobular septal thickening suggestive of mild pulmonary edema. 4. Body wall edema. 5. Left-sided pleurodesis. Electronically signed by: Justin eLwis M.D. 10/25/2016 5:38 PM Dictated Date/Time: 10/25/2016 5:28 PM The status of this report is Signed. Draft = Not yet reviewed or approved by Radiologist. Signed = Reviewed and approved by Radiologist. <AttendingPhy></AttendingPhy> <FamilyPhy>Mamadou Weathers</FamilyPhy> <PrimaryPhy> Mamadou Weathers</PrimaryPhy> <UnitNumber>[id number]</UnitNumber> <VisitNumber> [id number]</VisitNumber> <PatientName>MIGUEL SNEED</PatientName> < DateOfBirth>1950</DateOfBirth> <Location>C.EDB</Location> <ServiceDate></ServiceDate> <MNE>ESINDI</MNE> <OrderingPhy>Titus Whitney M.D.</ OrderingPhy> <OrderingPhyMNE>f rep ord dr dang</OrderingPhyMNE> <DictatingPhyMNE> f rep dict dr dang</DictatingPhyMNE> <CCListMNE>f rep ct mne</CCListMNE> < AdmittingPhyMNE>f pt admit dr dang</AdmittingPhyMNE> <AttendingPhyMNE>f pt attend dr dang</AttendingPhyMNE> <ConsultingPhyMNE>f pt consult dr dang</ConsultingPhyMNE> <FamilyPhyMNE>f pt fam dr dang</FamilyPhyMNE> <OtherPhyMNE>f pt other dr dang</OtherPhyMNE> < PrimaryPhyMNE>f pt prim care dr dang</PrimaryPhyMNE> <ReferringPhyMNE>f pt referring dr dang</ReferringPhyMNE> CT SCAN OF THE ABDOMEN AND PELVIS WITHOUT IV CONTRAST CLINICAL HISTORY: Abnormal liver and renal function. COMPARISON STUDY: Abdominal CT dated 03/31/2016. TECHNIQUE: CT scan of the abdomen and pelvis is performed from the lung bases to the proximal femora. Images are reviewed in the axial, sagittal, and coronal planes. IV contrast was not administered for this examination as per the referring clinician. Note that the examination was performed and significant suboptimal fashion without oral and IV contrast. The examination is also degraded by streak artifact from the right arm which could not be elevated above the abdomen. Automated dose control exposure was utilized. FINDINGS: Lung bases: The heart is top normal in size and without pericardial effusion. The coronary arteries are densely calcified. There is a small to moderate right pleural effusion with right basilar consolidation. There is a trace left pleural effusion with left basilar consolidation. A pleural drain is noted at the right lung base. Suture material is noted at the left lung base, and hyperdense material at the left lung base suggests previous pleurodesis. Liver: The unenhanced liver is cirrhotic in morphology and heterogeneous in attenuation. There is nodularity of the hepatic surface contour. There is mild central intrahepatic biliary ductal dilatation. Gallbladder: Surgically absent noting clips in the gallbladder fossa. Spleen: The spleen is mildly enlarged, measuring 14.5 cm in length. Pancreas: There is moderate fatty atrophy of the pancreas. Adrenal glands: Unremarkable. Kidneys: The unenhanced kidneys demonstrate mild cortical atrophy and are without hydronephrosis. A 5 mm nonobstructing calculus is present in the right lower pole. There are 2 nonobstructing calculi in the left lower pole measuring up to 3 mm. A 1.5 cm hyperdense lesion in the left upper pole is unchanged and likely represents a complex/hemorrhagic cyst. Abdominal vasculature: The abdominal aorta is normal in course and caliber noting moderate to advanced atherosclerotic calcification. Bowel: The small bowel and colon are normal in course and caliber. There is mild to moderate colonic fecal retention. There are scattered colonic diverticula without CT evidence of acute diverticulitis. The appendix is well-visualized and normal. Peritoneum: There is no intraperitoneal free air or abdominal ascites. There is mild mesenteric edema. There is a small fat-containing umbilical hernia. Lymphadenopathy: None. Pelvic viscera: The bladder, prostate, and seminal vesicles are normal as visualized. Skeletal structures: The skeletal structures are osteopenic. There is mild lumbosacral spondylosis. No lytic or blastic lesions are seen. Soft tissues: There is body wall edema. IMPRESSION: 1. Significantly suboptimal examination without oral and IV contrast. The examination is also degraded by streak artifact. 2. There are no acute infectious or inflammatory findings in the abdomen or pelvis. 3. Small to moderate right pleural effusion with right basilar consolidation and a right pleural drain in place. 4. There is a trace left pleural effusion with minimal consolidative change and evidence of previous pleurodesis at the left lung base. 5. Cirrhotic liver morphology. 6. There is mesenteric edema and anasarca of the body wall suggesting fluid overload. 7. Mild splenomegaly suggests portal hypertension. 8. Bilateral nonobstructing renal calculi. 9. Additional findings as above. Electronically signed by: Frederick Calderon M.D. 10/25/2016 5:42 PM Dictated Date/Time: 10/25/2016 5:31 PM The status of this report is Signed. Draft = Not yet reviewed or approved by Radiologist. Signed = Reviewed and approved by Radiologist. Laboratory Results 10/25/16 11:50 Red Blood Count 5.10, Mean Corpuscular Volume 87.6, Mean Corpuscular Hemoglobin 31.6, Mean Corpuscular Hemoglobin Concent 36.0, Mean Platelet Volume 11.0, Neutrophils (%) (Auto) 81.6, Lymphocytes (%) (Auto) 6.8, Monocytes (%) (Auto) 10.3, Eosinophils (%) (Auto) 0.6, Basophils (%) (Auto) 0.3, Neutrophils # (Auto ) 8.03, Lymphocytes # (Auto) 0.67, Monocytes # (Auto) 1.01, Eosinophils # (Auto ) 0.06, Basophils # (Auto) 0.03 10/25/16 11:50 Test 10/25/16 11:50 10/25/16 13:30 10/25/16 17:03 10/25/16 17:17 White Blood Count 9.84 K/uL (4.8-10.8) Red Blood Count 5.10 M/uL (4.7-6.1) Hemoglobin 16.1 g/dL (14.0-18.0) Hematocrit 44.7 % (42-52) Mean Corpuscular Volume 87.6 fL (80-100) Mean Corpuscular Hemoglobin 31.6 pg (25-34) Mean Corpuscular Hemoglobin Concent 36.0 g/dl (32-36) Platelet Count 257 K/uL (130-400) Mean Platelet Volume 11.0 fL (7.4-10.4) Neutrophils (%) (Auto) 81.6 % Lymphocytes (%) (Auto) 6.8 % Monocytes (%) (Auto) 10.3 % Eosinophils (%) (Auto) 0.6 % Basophils (%) (Auto) 0.3 % Neutrophils # (Auto) 8.03 K/uL (1.4-6.5) Lymphocytes # (Auto) 0.67 K/uL (1.2-3.4) Monocytes # (Auto) 1.01 K/uL (0.11-0.59) Eosinophils # (Auto) 0.06 K/uL (0-0.5) Basophils # (Auto) 0.03 K/uL (0-0.2) RDW Standard Deviation 49.6 fL (36.4-46.3) RDW Coefficient of Variation 15.6 % (11.5-14.5) Immature Granulocyte % (Auto) 0.4 % Immature Granulocyte # (Auto) 0.04 K/uL (0.00-0.02) Prothrombin Time 20.1 SECONDS (9.0-12.0) Prothromb Time International Ratio 1.8 (0.9-1.1) Activated Partial Thromboplast Time 35.6 SECONDS (21.0-31.0) Partial Thromboplastin Ratio 1.4 Anion Gap 14.0 mmol/L (3-11) Est Creatinine Clear Calc Drug Dose 52.7 ml/min Estimated GFR () 51.6 Estimated GFR (Non- 44.5 BUN/Creatinine Ratio 19.2 (10-20) Calcium Level 9.0 mg/dl (8.5-10.1) Magnesium Level 1.7 mg/dl (1.8-2.4) Total Bilirubin 6.5 mg/dl (0.2-1) Direct Bilirubin 5.0 mg/dl (0-0.2) Aspartate Amino Transf (AST/SGOT) 527 U/L (15-37) Alanine Aminotransferase (ALT/SGPT) 151 U/L (12-78) Alkaline Phosphatase 131 U/L (45-117) Total Creatine Kinase 85 U/L (39-308) Creatine Kinase MB 1.5 ng/ml (0.5-3.6) Creatine Kinase MB Ratio 1.8 (0-3.0) Troponin I 0.052 ng/ml (0-0.045) Total Protein 6.8 gm/dl (6.4-8.2) Albumin 2.5 gm/dl (3.4-5.0) Lipase 109 U/L (73-393) Thyroid Stimulating Hormone (TSH) 1.340 uIu/ml (0.300-4.500) Urine Color DK YELLOW Urine Appearance CLEAR (CLEAR) Urine pH 5.0 (4.5-7.5) Urine Specific [place] 1.005 (1.000-1.030) Urine Protein NEG (NEG) Urine Glucose (UA) NEG (NEG) Urine Ketones NEG (NEG) Urine Occult Blood NEG (NEG) Urine Nitrite NEG (NEG) Urine Bilirubin NEG (NEG) Urine Urobilinogen POS (NEG) Urine Leukocyte Esterase NEG (NEG) Urine WBC (Auto) /hpf (0-5) Urine RBC (Auto) /hpf (0-4) Urine Hyaline Casts (Auto) /lpf (0-5) Urine Epithelial Cells (Auto) /lpf (0-5) Urine Bacteria (Auto) (NEG) Urine RBC 0-4 /hpf (0-4) Urine WBC 0 /hpf (0-5) Urine Epithelial Cells 5-10 /lpf (0-5) Urine Bacteria NEG (NEG) Urine Hyaline Casts 1-5 /lpf (0-5) Lactic Acid Level 2.6 mmol/L (0.4-2.0) Ammonia < 10.0 umol/L (11-32) Test 10/25/16 17:39 Results Past 24 Hours Test 10/25/16 11:50 10/25/16 13:30 Range/Units White Blood Count 9.84 4.8-10.8 K/uL Red Blood Count 5.10 4.7-6.1 M/uL Hemoglobin 16.1 14.0-18.0 g/dL Hematocrit 44.7 42-52 % Mean Corpuscular Volume 87.6 80-100 fL Mean Corpuscular Hemoglobin 31.6 25-34 pg Mean Corpuscular Hemoglobin Concent 36.0 32-36 g/dl Platelet Count 257 130-400 K/uL Mean Platelet Volume 11.0 7.4-10.4 fL Neutrophils (%) (Auto) 81.6 % Lymphocytes (%) (Auto) 6.8 % Monocytes (%) (Auto) 10.3 % Eosinophils (%) (Auto) 0.6 % Basophils (%) (Auto) 0.3 % Neutrophils # (Auto) 8.03 1.4-6.5 K/uL Lymphocytes # (Auto) 0.67 1.2-3.4 K/uL Monocytes # (Auto) 1.01 0.11-0.59 K/uL Eosinophils # (Auto) 0.06 0-0.5 K/uL Basophils # (Auto) 0.03 0-0.2 K/uL RDW Standard Deviation 49.6 36.4-46.3 fL RDW Coefficient of Variation 15.6 11.5-14.5 % Immature Granulocyte % (Auto) 0.4 % Immature Granulocyte # (Auto) 0.04 0.00-0.02 K/uL Prothrombin Time 20.1 9.0-12.0 SECONDS Prothromb Time International Ratio 1.8 0.9-1.1 Activated Partial Thromboplast Time 35.6 21.0-31.0 SECONDS Partial Thromboplastin Ratio 1.4 Sodium Level 127 136-145 mmol/L Potassium Level 4.1 3.5-5.1 mmol/L Chloride Level 90 98-107 mmol/L Carbon Dioxide Level 23 21-32 mmol/L Anion Gap 14.0 3-11 mmol/L Blood Urea Nitrogen 31 7-18 mg/dl Creatinine 1.60 0.60-1.40 mg/dl Est Creatinine Clear Calc Drug Dose 52.7 ml/min Estimated GFR () 51.6 Estimated GFR (Non- 44.5 BUN/Creatinine Ratio 19.2 10-20 Random Glucose 168 70-99 mg/dl Calcium Level 9.0 8.5-10.1 mg/dl Magnesium Level 1.7 1.8-2.4 mg/dl Total Bilirubin 6.5 0.2-1 mg/dl Direct Bilirubin 5.0 0-0.2 mg/dl Aspartate Amino Transf (AST/SGOT) 527 15-37 U/L Alanine Aminotransferase (ALT/SGPT) 151 12-78 U/L Alkaline Phosphatase 131 45-117 U/L Total Creatine Kinase 85 39-308 U/L Creatine Kinase MB 1.5 0.5-3.6 ng/ml Creatine Kinase MB Ratio 1.8 0-3.0 Troponin I 0.052 0-0.045 ng/ml Total Protein 6.8 6.4-8.2 gm/dl Albumin 2.5 3.4-5.0 gm/dl Lipase 109 73-393 U/L Thyroid Stimulating Hormone (TSH) 1.340 0.300-4.500 uIu/ml Urine Color DK YELLOW Urine Appearance CLEAR CLEAR Urine pH 5.0 4.5-7.5 Urine Specific [place] 1.005 1.000-1.030 Urine Protein NEG NEG Urine Glucose (UA) NEG NEG Urine Ketones NEG NEG Urine Occult Blood NEG NEG Urine Nitrite NEG NEG Urine Bilirubin NEG NEG Urine Urobilinogen POS NEG Urine Leukocyte Esterase NEG NEG Urine WBC (Auto) 0-5 /hpf Urine RBC (Auto) 0-4 /hpf Urine Hyaline Casts (Auto) 0-5 /lpf Urine Epithelial Cells (Auto) 0-5 /lpf Urine Bacteria (Auto) NEG Urine RBC 0-4 0-4 /hpf Urine WBC 0 0-5 /hpf Urine Epithelial Cells 5-10 0-5 /lpf Urine Bacteria NEG NEG Urine Hyaline Casts 1-5 0-5 /lpf Microbiology Results 10/25/16 Blood Culture, Received Pending 10/25/16 Blood Culture, Received Pending 10/25/16 Urine Culture, Received Pending Diagnostic Radiology CHEST ONE VIEW PORTABLE CLINICAL HISTORY: Altered mental status COMPARISON STUDY: 10/22/2016 FINDINGS: The heart remains enlarged. A right-sided pleural drainage catheter is again visualized. There is a persistent right pleural effusion with associated right basilar airspace opacities. There is mild central pulmonary vascular congestion. A small left pleural effusion is also suspected. There are left basilar atelectatic changes. An electronic device projects over the central chest possibly representing an event recorder.[ IMPRESSION: Persistent cardiomegaly, pulmonary vascular congestion, and bilateral pleural effusions right greater than left. Persistent bibasal airspace opacities right greater than left. Persistent right pleural drain. Electronically signed by: Jason Trotter M.D. 10/25/2016 2:01 PM Dictated Date/Time: 10/25/2016 1:59 PM EKG Sinus rhythm with first-degree AV block and PACs noted Q waves noted in the inferior leads ST depressions noted in the lateral leads Impression - H&P Impression Assessment and Plan 65-year-old male with multiple medical problems presents emergency department with worsening shortness of breath, dyspnea on exertion and the sudden onset of acute chest pain today with attempts to drain his right-sided Pleurx catheter. Acute on chronic respiratory failure with hypoxia-likely multifactorial. Likely an element of acute on chronic diastolic heart failure. Worsening transudative pleural effusions. Normally on 2 L O2 per NC at home -Obtain CT chest/abd/pelvis -Give dose of Albumin 25%/lasix 40 mg IV x 1 -Patient's thoracic surgeon, Dr. Ag is out of town. Dr. Alatorre pulmonary will be consulted for the Pleurx catheter -Check ABG -Strict I's and O's Metabolic encephalopathy-possibly related to pain meds. However, I am concerned about his worsening liver function coupled with hypoxia -Check lactic acid -Check ammonia level -ABG as noted above Coagulopathy likely secondary to hepatitis-INR increased from 1.5-1.8. Transaminases up. Questionable History of hepatitis -Vit K 10 mg IV now -Check hepatitis panel Hyponatremia-? Dehydration, poor po intake versus SIADH -Add urine and serum osmolality -Strict I's and O's diabetes mellitus -follow BSGs AC, HS and with meals -hold patient's home dose of metformin 1000 mg BID -insulin sliding scale -Continue home dose of Lantus 20 u BID (if ok for diet) History of asthma -Continue Spiriva daily -Continue Symbicort BID -Duo nebs every 6 hours will be available History of coronary artery disease with substernal chest pain. Mild elevation in trop trending down from 3 days ago likely not cardiac in nature. This is likely more related to pleuritic pain -Trend cardiac enzymes -Telemetry monitoring -Continue metoprolol 12.5 mg BID AYLA -Encourage CPAP at night DVT prophylaxis -Hold off on chemical means as patient is coagulopathic -Teds, SCDs CODE STATUS -LEVEL I FULL CODE DISPO -pt is seriously ill, pending further work up, pt may need transfer to [facility] to pts other crossing guard, Dr. Gianna Neal as the pt's local thoracic surgeon is out of town. Dr. Alatorre also out of town ADDENDUM Given that the pt has worsening coagulopathy and his thoracic surgeon is out of town, recommend TRANSFER TO [facility] UNDER THE CARE OF PT'S OTHER PARTS ROOM ASSISTANT, DR. GIANNA NEAL. Level of Care Critical Care Resuscitation Status FULL RESUSCITATION VTE Prophylaxis Risk Level: Very Low Given or contraindicated: T.Lisa.Tamica Stockings, SCD's, Contraindicated (Marie Franklin PA-C) Assessment and Plan Attending addendum: I have seen and examined this patient, have directed their medical care, and agree with the H&P as noted above. (Titus Whitney M.D.)
[2016-10-25 19:08] LABS: ARTERIAL BLD GAS O2 SATURATION 98.1 % (90-95); ARTERIAL BLOOD GAS BASE EXCESS 1.6 mEq/L (-9-1.8); ARTERIAL BLOOD GAS HCO3 24 mmol/L (19-24); ARTERIAL BLOOD GAS PO2 98 mm/Hg (80-95)
[2016-10-25 19:13] LABS: ALLEN TEST POS (POS); ARTERIAL BLOOD GAS pH 7.51 (7.35-7.45); O2 ADMINISTRATION 2 LITERS
[2016-10-25 20:38] VITALS: TEMP 36.8
[2016-10-25] MEDS ORDERED: OXYCODONE HCL IR 5 MG TAB (IMMEDIATE RELEASE) PO STA (23:59)
[2016-10-26 00:28] VITALS: BP 101/74; PULSE 75; O2SAT 94
== END 2016-10-26 00:29 | disposition short-term general hospital (02) ==
LOC: EDBD 12:20 → C.EDB 12:23
DX: I50.30 Unspecified diastolic (congestive) heart failure (principal); N28.9 Disorder of kidney and ureter, unspecified; E87.1 Hypo-osmolality and hyponatremia; E80.6 Other disorders of bilirubin metabolism; Z79.84 Long term (current) use of oral hypoglycemic drugs; J45.909 Unspecified asthma, uncomplicated; D68.9 Coagulation defect, unspecified; I25.10 Atherosclerotic heart disease of native coronary artery without angina pectoris; I25.2 Old myocardial infarction; G47.33 Obstructive sleep apnea (adult) (pediatric); E11.9 Type 2 diabetes mellitus without complications; Z79.4 Long term (current) use of insulin; Z95.828 Presence of other vascular implants and grafts; Z95.5 Presence of coronary angioplasty implant and graft; Z83.3 Family history of diabetes mellitus; Z82.49 Family history of ischemic heart disease and other diseases of the circulatory system; Z82.0 Family history of epilepsy and other diseases of the nervous system; Z79.82 Long term (current) use of aspirin